=== PATIENT | male | born 1990 | race Asian ===

== ENCOUNTER 2020-09-14 20:20 | Observation (INO) | payer OTHER ==
[~2020-09-14] VITALS: Ht 182.9 cm; Wt 98.0 kg
[2020-09-14] VITALS (10 sets, daily range): BP systolic 140–165; BP diastolic 85–105; TEMP 98.3–98.5
[2020-09-14] MEDS ORDERED: QUET300T PO (20:41)
[2020-09-14] MEDS ORDERED: LISI20TA11 PO (20:42)
[2020-09-14] MEDS ORDERED: AMLODIPINE BESYLATE PO (20:42)
[2020-09-14 20:57] LABS: SODIUM 138 mmol/L (136-145)
[2020-09-14 21:06] LABS: PLATELET COUNT 355 K/uL (142-355)
[2020-09-15 00:22] VITALS: BP 136/79; TEMP 98.1; Ht 182.9 cm; Wt 98.0 kg
[2020-09-15 04:00] VITALS: BP 125/70; TEMP 97.7
[2020-09-15 08:00] VITALS: BP 133/79; TEMP 97.8
[2020-09-15 12:00] VITALS: BP 147/83; TEMP 98.1
[2020-09-15] MEDS ORDERED: COATED ASPIRIN325 MG PO (14:56)
[2020-09-15] MEDS ORDERED: NITROGLYCERIN0.4 MG SL (14:59)
== END 2020-09-15 13:45 | disposition home or self-care (01) ==
LOC: ED 20:30 → MED/SURG 23:30
PROVIDERS: Family Medicine; ADMIT Internal Medicine; ATTEND Internal Medicine
DX: R07.89 Other chest pain (principal); I10 Essential (primary) hypertension; F31.9 Bipolar disorder, unspecified
CPT/HCPCS: 36415; 80053; 81000; 82550; 82553; 82728; 84484; 85007; 85027; 85379; 93005; 96360; 96374; 99220; 99284; G0378; J0360; J1650